=== PATIENT | male | born 1985 | race Two or more races ===

== ENCOUNTER → 2022-09-08 15:43 | Outpatient (BNVA) | payer OTHER, SELFPAY | PROVIDERS: PCP Student in an Organized Health Care Education/Training Program; Visit Provider Neurological Surgery | DX: Z48.89 Encounter for other specified surgical aftercare (principal); M51.16 Intervertebral disc disorders with radiculopathy, lumbar region | CPT/HCPCS: 99211 ==

== ENCOUNTER 2022-12-28 15:25 | Outpatient (AMB) | payer OTHER, SELFPAY ==
--- NOTE | 2022-12-28 16:00 | HO.SPINEOV ---
Intake Intake Visit Reasons: 3mo f/u Intake Note: Mr. Enciso is here today for a 3mo follow up. Administrative Program Specialist Required: No Assessment & Plan Assessment & Plan (1) Lumbar disc herniation with radiculopathy: Code(s): M51.16 - Intervertebral disc disorders with radiculopathy, lumbar region Plan Adilson is a 37-year-old male who comes in today with a chief complaint of continued radicular pain down his right posterior leg despite a right sided L4-5 microdiskectomy performed in June of this year. He was previously seen and evaluated by DIEUDONNE Araujo and Dr. Gonzalez, who recommended that he attempt to allow the tincture of time to heal his surgical site and reduce inflammation around the area before considering additional surgery. Unfortunately the patient reports that his symptoms persist and have gotten worse than they were pre-operatively. He now has a difficult time walking for extended periods of time and finds himself needing to flip around/move during the night when he wakes up with pain. The patient was evaluated with Dr. Gonzalez in the office today who recommended that he have a repeat MRI with contrast to identify any possible vestiges from his previous surgery that could be impinging the spinal cord. We will call him with the results of his repeat MRI and discuss possible surgical options if warranted. Adilson reports he has tried all over the counter remedies to help resolve this issue, including Tylenol, Ibuprofen, Ice, Heat, OTC Pain patches, and stretching / light exercise. He has also completed 8+ weeks of at home physical therapy. He does not feel that these were helpful for him and did not alleviate or resolve his radicular pain issue. Total amount of time spent in this visit was 20 minutes in discussion of symptoms, MRI lumbar spine imaging results and subsequent plan of care Jonathon Gonzalez MD,PhD [facility] Orders: Orders MR lumbar spine wo/w con 12/28/22 M51.16 - Intervertebral disc disorders with radiculopathy, lumbar region Coding Level of Care Code Est Pt Level 3 (89232) Diagnoses Lumbar disc herniation with radiculopathy M51.16
== END 2022-12-28 16:23 | disposition home or self-care (01) ==
PROVIDERS: PCP Student in an Organized Health Care Education/Training Program; Visit Provider Physician Assistant
DX: M51.16 Intervertebral disc disorders with radiculopathy, lumbar region (principal)
CPT/HCPCS: 99213

== ENCOUNTER → 2022-12-28 15:25 | Outpatient (BNVA) | payer OTHER, SELFPAY | PROVIDERS: PCP Student in an Organized Health Care Education/Training Program; Visit Provider Physician Assistant | DX: M51.16 Intervertebral disc disorders with radiculopathy, lumbar region (principal) | CPT/HCPCS: 99212 ==

== ENCOUNTER 2023-01-12 09:38 | Outpatient (REF) | payer OTHER, SELFPAY | END 2023-01-12 09:39 | disposition home or self-care (01) | LOC: HO.HOSX 09:38 | PROVIDERS: Visit Provider Physician Assistant | DX: Z13.89 Encounter for screening for other disorder (principal) ==

== ENCOUNTER 2023-01-13 11:48 | Outpatient (REF) | payer OTHER, SELFPAY ==
--- NOTE | ~2023-01-13 | XR_ITS ---
EXAMINATION: XR LUMBOSACRAL SPINE WITH OBLIQUES CLINICAL INFORMATION: Interval disc disorder with radiculopathy COMPARISON: None available. TECHNIQUE: 4 views of the lumbar spine inclusive of flexion and extension views. FINDINGS: Surgical clips right upper quadrant. Mild dextroscoliosis of the lumbar spine. Facet arthritis in the lower lumbar spine. Mild spondylosis in the lower lumbar spine with loss of disc space height at L4-L5. Transitional anatomy present with articulation with the sacral ala on the right. Alignment preserved on flexion and extension views. XR/XR lumbar spine 4V min IMPRESSION: Mild spondylosis in the lower lumbar spine with loss of disc space height at L4-L5. Transitional anatomy present with articulation with the sacral ala on the right.
== END 2023-01-13 11:49 | disposition home or self-care (01) ==
LOC: HO.HOSX 11:48
PROVIDERS: Visit Provider Physician Assistant
DX: M51.16 Intervertebral disc disorders with radiculopathy, lumbar region (principal)
CPT/HCPCS: 72110

== ENCOUNTER 2023-01-28 13:13 | Outpatient (AMB) | payer OTHER, SELFPAY ==
--- NOTE | 2023-01-28 13:39 | A.OFFVIS_ITS ---
Intake Intake Visit Reasons: follow up Integration Solution Architect Required: No Assessment & Plan Assessment & Plan (1) Lumbar radiculopathy: Code(s): M54.16 - Radiculopathy, lumbar region Plan Adilson comes back to the office today as a follow-up patient today as his radicular pain continues to worsen. He states the pain continues to radiate down his right posterior leg. The pain is accompanied by numbness/burning/tingling in this distribution. He reports that his pain continues to get worse and is now causing him to lose an extensive amount of sleep. He only sleeps 2-3 hours per night due to the pain is right leg. He cannot work. He states that it now has migrated even farther down his leg from his posterior thigh to the bottom of his foot. He also endorses he had feels like he has been losing his balance and that he feels unsteady when walking. This is caused him to fall more than once. He does not smoke or use nicotine products. He reports no recreational substance use. He has tried all over the counter remedies to help resolve this issue, including Tylenol, Ibuprofen, Ice, Heat, OTC Pain patches, and stretching / light exercise. He has completed 8+ weeks of at home physical therapy within the last 3 months. He does not feel that these were helpful for him and did not alleviate or resolve his radicular pain issue. Adilson symptoms continue to progress each time that we see him. Unfortunately despite this he continues to have MRIs repeatedly denied. last time I spoke with his insurance company they assured me that mary canceled and reordered his MRI that it would be approved due to the documentation that I provided to them. Unfortunately this MRI was also denied. Jessee will attempt submitting this office visit documentation alongside his most recent MRI denial, in the hopes that his continued progression of symptoms will finally be addressed with the proper imaging. Total amount of time spent in this visit was 20 minutes in discussion of sy mptoms, and subsequent plan of care. Jonathon Gonzalez MD,PhD [facility] Coding Level of Care Code Est Pt Level 3 (44412) Diagnoses Lumbar radiculopathy M54.16
== END 2023-01-28 13:53 | disposition home or self-care (01) ==
PROVIDERS: PCP Student in an Organized Health Care Education/Training Program; Visit Provider Physician Assistant
DX: M54.16 Radiculopathy, lumbar region (principal)
CPT/HCPCS: 99213

== ENCOUNTER → 2023-01-28 13:13 | Outpatient (BNVA) | payer OTHER, SELFPAY | PROVIDERS: PCP Student in an Organized Health Care Education/Training Program; Visit Provider Physician Assistant | DX: M54.16 Radiculopathy, lumbar region (principal) | CPT/HCPCS: 99212 ==

== ENCOUNTER 2023-03-17 09:46 | Outpatient (REF) | payer OTHER, SELFPAY ==
--- NOTE | ~2023-03-17 | MR_ITS ---
EXAMINATION: MR LUMBAR SPINE WITH AND WITHOUT CONTRAST CLINICAL INFORMATION: Radiculopathy, concern for disc herniation COMPARISON: Lumbar radiographs 01/13/2023 TECHNIQUE: MRI of the lumbar spine was obtained using routine sequences with and without the administration of intravenous contrast. 9 mL of intravenous Gadavist was administered without immediate complication. FINDINGS: Transitional lumbosacral anatomy with a partially sacralized L5 vertebral body and pseudoarticulation between the right L5 transverse process and the sacrum. For the purposes of this examination, the L4-L5 intervertebral disc space is visualized on axial series 5 image 23. Straightening of the normal lumbar lordosis with trace dextrocurvature of the lumbar spine. Trace retrolisthesis of L3-L4. Lumbar vertebral body heights are maintained. No expansile or destructive osseous lesion. The conus medullaris and cauda equina nerve roots are unremarkable; the conus terminates at the level of L1. No abnormal enhancement along the cauda equina nerve roots. L1-L2: No significant spinal canal or neural foraminal stenosis. L2-L3: No significant spinal canal or neural foraminal stenosis. L3-L4: Disc bulge and osteophytic ridging with mild facet degeneration. There is prominent epidural fat. The spinal canal remains patent. No significant neural foraminal stenosis. L4-L5: Disc bulge and osteophytic ridging with a central disc extrusion with mild inferior migration. There are left greater than right foraminal disc protrusions. Associated mild spinal canal stenosis with impingement of the lateral recesses abutting the descending bilateral L5 nerve roots. Mild facet arthropathy. There is moderate left greater than right neural foraminal stenosis with abutment of the exiting L4 nerve roots. L5-S1: No significant spinal canal or neural foraminal stenosis. Subcentimeter T2 hyperintense focus in the left kidney is too small to fully characterize but likely represents a cyst. 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 Numbering system for this examination as described above. If surgery is considered, total spine radiographs are recommended to ensure accurate spine labeling. At L4-L5 there is a disc bulge with small central disc extrusion and left greater the right foraminal disc protrusions. This contributes to mild spinal canal stenosis with impingement of the lateral recesses abutting the descending L5 nerve roots. Additionally, there is moderate left greater than right neural foraminal stenosis with exiting nerve root impingement.
[2023-03-17] MEDS: gadobutroL 10 ML VIAL IVPUSH (11:10)
== END 2023-03-17 09:47 | disposition home or self-care (01) ==
LOC: HO.MRI 09:46
PROVIDERS: Visit Provider Physician Assistant
DX: M51.16 Intervertebral disc disorders with radiculopathy, lumbar region (principal)
CPT/HCPCS: 72158; A9585